=== PATIENT | male | born 1955 | race Caucasian/White ===

== ENCOUNTER → 2017-03-11 | Outpatient (CLI) | payer OTHER | LOC: FIMAGING 09:58 | PROVIDERS: ATTEND Urology | DX: N20.0 Calculus of kidney (principal); M51.36 Other intervertebral disc degeneration, lumbar region; M53.3 Sacrococcygeal disorders, not elsewhere classified ==

== ENCOUNTER → 2017-12-09 | Outpatient (CLI) | payer OTHER | LOC: BMCIMAGING 14:06 | PROVIDERS: ATTEND Podiatrist Foot & Ankle Surgery | DX: M79.672 Pain in left foot (principal); I70.90 Unspecified atherosclerosis ==

== ENCOUNTER → 2017-12-11 | Outpatient (CLI) | payer OTHER | LOC: CIMAGING 09:52 | PROVIDERS: ATTEND Family Medicine | DX: N13.0 Hydronephrosis with ureteropelvic junction obstruction (principal) | CPT/HCPCS: 74176-PO ==

== ENCOUNTER → 2018-05-30 | Outpatient (CLI) | payer OTHER | LOC: FIMAGING 12:32 | PROVIDERS: ATTEND Urology | DX: Z09 Encounter for follow-up examination after completed treatment for conditions other than malignant neoplasm (principal); Z87.442 Personal history of urinary calculi ==